=== PATIENT | male | born 1960 | race Caucasian/White ===

== ENCOUNTER 2019-10-22 21:40 | Emergency (ER) | payer BC ==
[~2019-10-22] VITALS: Ht 177.8 cm; Wt 86.2 kg
[2019-10-22 21:45] VITALS: BP 159/77
== END 2019-10-22 22:10 | disposition home or self-care (01) ==
LOC: MED 21:40
DX: L03.116 Cellulitis of left lower limb (principal)
CPT/HCPCS: 99283

== ENCOUNTER 2020-07-16 10:46 | Inpatient (IN) | payer BC, SELFPAY ==
[~2020-07-16] VITALS: Ht 175.3 cm; Wt 83.9 kg
[2020-07-16 10:55] VITALS: BP 158/64
--- NOTE | 2020-07-16 10:56 | NUR ---
Pt ambulated to ER bed 8.
--- NOTE | 2020-07-16 10:59 | NUR ---
Pt ambulated to restroom for UA collection.
--- NOTE | 2020-07-16 11:08 | NUR ---
60 Y/O MALE C/O DARK BLACK STOOLS WITH X3 DAYS, WITH ABD TIGHTNING/CRAMPING AND HEMATURIA. PT STATES HE WENT TO CLINIC AND THEY GIVE HIM 3 SHOTS, UNAWARE OF WHAT WAS GIVEN WITH NO RELIEF. PT STATES HE FEELS DIZZY AND LIGHTHEADED AND HIS EYES ARE TREMBLING. PT REPORTS NUMBNESS AND TINGLING TO LIPS. LAST BLOODY STOOL WAS LAST NIGHT. PT REPORTS N/V. DENIES PAIN AND SOB. ACTIVE BOWEL SOUNDS IN ALL FOUR QUADRANTS. PT ABD IS ROUND, SOFT AND NONTENDER. PT STATES THIS OCCURED LAST YEAR. PT IS A&O X4 WITH EVEN AND UNLABORED RESPIRATIONS. PT IS LAYING IN BED, WITH BED IN LOWEST POSITION, BRAKES LOCKED WITH X1 SIDERAIL UP. PMH: DENIES NKA
--- NOTE | 2020-07-16 11:20 | NUR ---
DR GARCIA AT PT BEDSIDE FOR FURTHER EVALUATION.
--- NOTE | 2020-07-16 11:32 | NUR ---
EMT AT PT BEDSIDE FOR EKG.
--- NOTE | 2020-07-16 11:35 | NUR ---
IV ESTABLISHED IN RIGHT WRIST 20G. BLOOD SAMPLES COLLECTED AND GIVEN TO LAB
--- NOTE | 2020-07-16 11:46 | NUR ---
SCALPING MACHINE OPERATOR AT PT BEDSIDE
[2020-07-16 11:48] LABS: BASOPHILS % (AUTO) 0.5 % (0.0-2.0); EOSINOPHILS # (AUTO) 0.1 K/uL (0-0.4); EOSINOPHILS % (AUTO) 2.8 % (0.0-4.0); HEMATOCRIT 24.5 % (36-52); HEMOGLOBIN 8.4 g/dL (12.0-18.0); LYMPHOCYTES # (AUTO) 1.4 K/uL (2.0-11.5); LYMPHOCYTES % (AUTO) 27.6 % (20.5-51.1); MEAN CORPUSCULAR HEMOGLOBIN 31 pg (27-31); MEAN CORPUSCULAR HGB CONC 34 g/dL (33-37); MEAN CORPUSCULAR VOLUME 89.5 fL (80-94); MONOCYTES # (AUTO) 0.2 K/uL (0.8-1.0); MONOCYTES % (AUTO) 4.5 % (1.7-9.3); NEUTROPHILS # (AUTO) 3.3 K/uL (1.8-7.7); NEUTROPHILS % (AUTO) 64.6 % (42.2-75.2); PLATELET COUNT (AUTO) 133 K/uL (140-450); RED BLOOD CELL COUNT(AUTO) 2.74 MIL/uL (4.20-6.10); RED CELL DISTRIBUTION WIDTH 14.3 % (11.6-13.7); WHITE BLOOD COUNT (AUTO) 5.1 K/uL (4.8-10.8)
[2020-07-16 12:01] LABS: PROTHROMBIN TIME 9.3 secs (10.8-13.4)
[2020-07-16 12:03] LABS: ALBUMIN 3.4 g/dL (3.4-5.0); ANION GAP 11.7 (8-16); CARBON DIOXIDE 27.7 mmol/L (21-32); POTASSIUM 3.4 mmol/L (3.5-5.1); TOTAL BILIRUBIN 0.3 mg/dL (0.0-1.0)
[2020-07-16 12:04] LABS: APPEARANCE,URINE CLEAR (CLEAR); BILIRUBIN,URINE NEGATIVE (NEGATIVE); BLOOD, URINE NEGATIVE (NEGATIVE); COLOR,URINE YELLOW (YELLOW); LEUKOCYTE ESTERASE ,URINE NEGATIVE (NEGATIVE); NITRITE, URINE NEGATIVE (NEGATIVE); UGLUCOSE NEGATIVE (NEGATIVE)
--- NOTE | 2020-07-16 12:19 | NUR ---
RN AT PT BEDSIDE FOR ECTOR ORNELAS, WALKED TO LAB.
--- NOTE | 2020-07-16 12:37 | NUR ---
Gave report to LEISA Lieberman for pending admission tele 104B. Pending ECTOR ORNELAS results. ETA 15 minutes-20 minutes.
--- NOTE | 2020-07-16 12:58 | NUR ---
COVID DURGA RESULTS BACK- PT IS NEGATIVE. NOTIFIED JOSE DE LA FUENTE. ETA 10 MINS
--- NOTE | 2020-07-16 13:07 | NUR ---
Patient will be admitted to care of Dr. Ascencion Killian. Admited to Telemetry. Will go to room 104B. Belongings list completed. Report to Mio DE LA FUENTE.
--- NOTE | 2020-07-16 13:30 | NUR ---
ADMITTED PT FROM ER WITH DX OF GI BLEED. PT STATED BLACK STOOL DURING BOWEL MOVEMENT. PT IS RESTING AND CALM. DENIES DISCOMFORT OR PAIN. DENIES CHEST PAIN. RFA PERIPHERAL LINE INTACT AND PATENT. NO S/S OF RESPIRATORY DISTRESS. [id number]. BRP. PT IS COOPERATIVE. WILL MONITOR CLOSELY.
[2020-07-16] MEDS ORDERED: ONDANSETRON 4 MG/2 ML VIAL IM/IVP PRN (14:25)
[2020-07-16] MEDS ORDERED: ACETAMINOPHEN 325 MG TAB PO PRN (14:25)
[2020-07-16] MEDS ORDERED: POTASSIUM CHLORIDE 10 MEQ TABER PO PRN (14:25)
[2020-07-16] MEDS ORDERED: HYDROcodone/APAP 7.5/325 MG 1 TAB PO PRN (14:25)
[2020-07-16] MEDS ORDERED: DOCUSATE SODIUM 100 MG GELCAP PO PRN (14:25)
[2020-07-16] MEDS ORDERED: NACL 0.9% 1,000 ML IV SCH (14:25)
--- NOTE | 2020-07-16 14:30 | NUR ---
SEEN AND EXAMINED BY DR. CURRY. MED POC DISCUSSED. ORDERED TO HAVE PT FOR REG DIET. DR. GRAHAM WILL BE CONSULTED.
[2020-07-16 14:41] VITALS: BP 135/51
[2020-07-16 15:36] LABS: CHOL/HDL RATIO 6.4 (1-4.5); FREE T4 (FREE THYROXINE) 1.08 ng/dL (0.76-1.46); MAGNESIUM 2.3 mg/dL (1.8-2.4); PHOSPHORUS 3.1 mg/dL (2.5-4.9); THYROID STIMULATING HORMONE 1.06 uIU/mL (0.34-3.74)
--- NOTE | 2020-07-16 16:00 | NUR ---
SEEN BY DR. GRAHAM. PLAN TO HAVE FOR EGD AND COLONOSCOPY TOMORROW. DISCUSSED WITH PT. PT VERBALIZED UNDERSTANDING
[2020-07-16] MEDS ORDERED: POTASSIUM CHLORIDE 20% 40 MEQ/15 ML UDC GT SCH (16:30)
[2020-07-16] MEDS: PANTOPRAZOLE 40 MG INJ VIAL IVP SCH ×2 (16:52→21:22)
[2020-07-16] MEDS: LACTULOSE 20 GM/30 ML UDC PO SCH ×2 (17:03→21:22)
[2020-07-16] MEDS: SENNA 8.6 MG TAB PO SCH (17:04)
--- NOTE | 2020-07-16 19:30 | NUR ---
ENDORSED PT TO PIPE COVERING MOLDER RN. POC DISCUSSED AND REVIEWED. PT ON NPO. BM X1. DENIES DISCOMFORT OR PAIN. NO CHANGE OF CONDITION.
--- NOTE | 2020-07-16 19:32 | NUR ---
RECEIVED PT IN STABLE CONDITION FROM NM NURSE. TELE PT. AWAKE,ALERT AND ORIENTED X4. WITH NO C/O ANY DISCOMFORT NOR PAIN NOTED. PT ON NPO EXCEPT MEDS. VERBALIZED UNDERSTANDING. FOR EGD AND COLONOSCOPY TOMORROW. CONSENT SIGNED BY PT PER AM NURSE. IVF INFUSING WELL ON THE RT FA G #20. CLEAR AND PATENT. FOR PREP TONIGHT. FREQ CHECK NEEDED. BED ON LOW POSITION, SIDE RAILS UP X2 CALL LIGHT WITHIN REACH. WILL CONTINUE TO MONITOR.
[2020-07-16 20:00] VITALS: BP 142/60
[2020-07-16] MEDS: SUPREP BOWEL PREP KIT 354 ML SOLN.RECON PO SCH (21:23)
--- NOTE | 2020-07-16 21:23 | NUR ---
PT STARTED TAKING THE SURE PREP 177ML WITH WATER INSTRUCTED . WILL COME BACK TO AFTER AN HOUR.
[2020-07-17] VITALS: BP 136/58
--- NOTE | 2020-07-17 00:50 | NUR ---
PT IN THE BATHROOM. STARTED TO HAVE A LOOSE BM.
--- NOTE | 2020-07-17 02:00 | NUR ---
PT SLEEPING. NO PAIN NOTED.
[2020-07-17 04:00] VITALS: BP 133/55
--- NOTE | 2020-07-17 05:00 | NUR ---
PT HAD TOTAL 6X LOOSE WATERY BM DURING THE NIGHT. OUTPUT IS ALMOST CLEAR.
[2020-07-17 06:21] LABS: BASOPHILS % (AUTO) 0.8 % (0.0-2.0); EOSINOPHILS # (AUTO) 0.1 K/uL (0-0.4); EOSINOPHILS % (AUTO) 2.7 % (0.0-4.0); HEMATOCRIT 23.4 % (36-52); HEMOGLOBIN 8.4 g/dL (12.0-18.0); LYMPHOCYTES % (AUTO) 22.8 % (20.5-51.1); MEAN CORPUSCULAR HEMOGLOBIN 32 pg (27-31); MEAN CORPUSCULAR HGB CONC 36 g/dL (33-37); MEAN CORPUSCULAR VOLUME 88.6 fL (80-94); MONOCYTES # (AUTO) 0.3 K/uL (0.8-1.0); MONOCYTES % (AUTO) 7.8 % (1.7-9.3); NEUTROPHILS # (AUTO) 2.9 K/uL (1.8-7.7); NEUTROPHILS % (AUTO) 65.9 % (42.2-75.2); PLATELET COUNT (AUTO) 138 K/uL (140-450); RED BLOOD CELL COUNT(AUTO) 2.64 MIL/uL (4.20-6.10); RED CELL DISTRIBUTION WIDTH 14.6 % (11.6-13.7); WHITE BLOOD COUNT (AUTO) 4.4 K/uL (4.8-10.8)
[2020-07-17 06:33] LABS: ANION GAP 12.4 (8-16); CARBON DIOXIDE 27.5 mmol/L (21-32); CREATININE 0.8 mg/dL (0.6-1.3); POTASSIUM 3.9 mmol/L (3.5-5.1)
--- NOTE | 2020-07-17 06:45 | NUR ---
KEPT PT NPO EXCEPT FOR MEDS. PT AWARE.
--- NOTE | 2020-07-17 07:20 | NUR ---
ENDORSED TO AM NURSE IN STABLE CONDITION.
--- NOTE | 2020-07-17 07:21 | NUR ---
RECEIVED ENDORSEMENT FROM COMMUNITY SERVICE AIDE, AWAKE, ALERT, ORINETEDX4, BREATHING SPONTANEOUSLY AT ROOM AIR, NOT IN DISTRESS NOTED. WITH ONGOING IV FLUID WITH 0.9% NS AT 60ML/HOUR INFUSING AT RT FOREARM , G20 IV CANNULA NOTED. NPO EXCEPT MEDS, FOR EGD AND COLONOSCOPY TODAY. SAFETY MEASURES IN PLACE AND CONTINUE MONITOR
[2020-07-17 08:00] VITALS: BP 124/59
[2020-07-17] MEDS: LACTULOSE 20 GM/30 ML UDC PO SCH ×2 (08:12→13:00)
[2020-07-17] MEDS: SENNA 8.6 MG TAB PO SCH ×2 (08:12→13:00)
[2020-07-17] MEDS: PANTOPRAZOLE 40 MG INJ VIAL IVP SCH (08:13)
[2020-07-17] MEDS: SUPREP BOWEL PREP KIT 354 ML SOLN.RECON PO SCH (08:16)
--- NOTE | 2020-07-17 08:24 | NUR ---
FULLY AWAKE NAD ALERT, DUE MEDICATION GIVEN
[2020-07-17] MEDS ORDERED: PANTOPRAZOLE 40 MG TABEC PO SCH (09:00)
[2020-07-17] MEDS ORDERED: PANTOPRAZOLE 40 MG INJ VIAL IVP SCH (09:00)
--- NOTE | 2020-07-17 09:02 | NUR ---
PATIENT HAS BEEN SCREENED AND CATEGORIZED LOW NUTRITION RISK. PATIENT WILL BE SEEN WITHIN 7 DAYS OF ADMISSION. 07/23/[address]
[2020-07-17 09:07] LABS: T4 (THYROXINE) 6.6 ug/dL (4.5-12.0)
--- NOTE | 2020-07-17 09:37 | NUR ---
SOCIAL WORK NOTE: Patient's Orientation Unable To Assess Information Provided By TAYLER GALDAMEZ - DAUGHTER Comments SW WAS UNABLE TO MEET PATIENT AT BEDSIDE. SW CONTACTED PATIENT'S SON AND LEFT VM. SW CONTACTED PATIENT'S HOME PHONE AND SPOKE TO PATIENT'S DAUGHTER WHO PROVIDED ADDITIONAL CONTACT INFORMATION. Cancer Registrar, Realtionship and Phone Number LUISA GALDAMEZ SON [phone] TAYLER GALDAMEZ DAUGHTER [phone] Healthcare Power of Zyglo Inspector No Does Patient Have a POLST No Identifying Problems No Social Work Triggers Is A Social Work Consult Needed No Mandate Report Filed No Explanation Of Identifying Problems PATIENT IS A 60-YEAR-OLD MALE ADMITETD FOR GI BLEED. PATIENT HAS NO REPORTED PMHX. PATIENT'S DAUGHTER REPORTED NO HX OF MENTAL HEALTH OR SUBSTANCE ABUSE. Admitted From Home Pre-Admission Level Of Functioning Status Independent/Ambulatory Prior Resources/Services Used In Last 12 Months No Prior Resources Used Prior DME No Prior DME Used Dialysis Comments N/A Living Situation Lives With Family House Patient Had Caregiver No Home Support No Caregiver Issues Financial Issues No Known Financial Issue Referral To The Financial Counselor Needed No Factors/Needs No D/C Needs Identified Pt/Rep Participated In Discharge Plan Yes Patient/Family Agress With Discharge Plan Yes Discharge Plan Comments TENTATIVE DISCHARGE PLAN IS FOR PATIENT TO RETURN HOME. DC Plan Status Initiated
--- NOTE | 2020-07-17 10:16 | NUR ---
VERBALIZED PASSED WATERY CLEAR STOOL
[2020-07-17 12:00] VITALS: BP 139/51
--- NOTE | 2020-07-17 12:16 | NUR ---
DISCHARGE PLANNING: THIS IS A 60 Y/O MALE PATIENT FROM HOME, WHO CAME IN DUE TO DARK STOOLS X3 DAYS. NO PAST MEDICAL HISTORY. INITIAL DIAGNOSIS OF GI BLEED. CURRENT LABS INCLUDE WBC 4.4, H/H 8.4/23.4, NA/K 145/3.9, BUN/CREA 8/0.8. RAPID COVID TEST NEGATIVE. ON ROOM AIR, O2 SAT 99%. GI CONSULT IN PLACE. TENTATIVE PLAN TO RETURN HOME ONCE STABLE.
--- NOTE | 2020-07-17 12:16 | NUR ---
VITAL SIGNS STABLE. NOT IN DISTRESS NOTED
[2020-07-17] MEDS ORDERED: diphenhydrAMINE 50 MG/ML VIAL ONE (13:10)
[2020-07-17] MEDS ORDERED: fentaNYL citrate 0.05 MG/ML VIAL ONE (13:10)
--- NOTE | 2020-07-17 13:10 | NUR ---
OR NURSE RAYMOND CAME AND PICKED UP THE PATIENT PER BED, FOR EGD AND COLONOSCOPY
[2020-07-17] MEDS ORDERED: MIDAZOLAM 5 MG/5 ML VIAL ONE (13:11)
[2020-07-17] MEDS ORDERED: MIDAZOLAM 2 MG/2 ML VIAL IVP ONE (14:40)
[2020-07-17] MEDS ORDERED: fentaNYL citrate 0.05 MG/ML VIAL IVP ONE (14:40)
--- NOTE | 2020-07-17 15:01 | NUR ---
BACK TO ROOM , FULLY AWAKE AND ALERT, VITAL SIGNS STABLE Addendum: 07/17/20 at 1946 by [facility] 11 LEISA RN EGD AND COLONOSCOPY FINDINGS WITH GASTRIC ULCER AND 2 COLON POLYPS PER THE OR NURSE
[2020-07-17 16:00] VITALS: BP 126/50
--- NOTE | 2020-07-17 17:10 | NUR ---
FULLY AWAKE AND ALERT, JELLO AND APPLE JUICE OFFERED AND DUE MEDICATION GIVEN
[2020-07-17] MEDS: FERROUS GLUCONATE 324 MG TAB PO SCH (17:39)
--- NOTE | 2020-07-17 19:25 | NUR ---
ENDORSED TO NADYA SHIFT IN STABLE CONDITION FOR CONTINUITY OF CARE
[2020-07-17 20:00] VITALS: BP 132/65
--- NOTE | 2020-07-17 20:00 | NUR ---
RECEIVED PATIENT AWAKE IN BED. PATIENT ON ROOM AIR. NO SOB OR S/S OF DISTRESS. PT DENIES ANY PAIN OF DISCOMFORT. BED LOWERED WITH CALL LIGHT WITHIN REACH
[2020-07-18] VITALS: BP 128/61
--- NOTE | 2020-07-18 01:00 | NUR ---
PT ASLEEP IN BED. NO S/S OF DISTRESS NOTED
[2020-07-18 04:00] VITALS: BP 126/53
[2020-07-18 06:27] LABS: BASOPHILS % (AUTO) 0.8 % (0.0-2.0); EOSINOPHILS # (AUTO) 0.2 K/uL (0-0.4); EOSINOPHILS % (AUTO) 3.4 % (0.0-4.0); HEMATOCRIT 24.3 % (36-52); HEMOGLOBIN 8.5 g/dL (12.0-18.0); LYMPHOCYTES # (AUTO) 1.1 K/uL (2.0-11.5); LYMPHOCYTES % (AUTO) 18.9 % (20.5-51.1); MEAN CORPUSCULAR HEMOGLOBIN 31 pg (27-31); MEAN CORPUSCULAR HGB CONC 35 g/dL (33-37); MEAN CORPUSCULAR VOLUME 88.6 fL (80-94); MONOCYTES # (AUTO) 0.4 K/uL (0.8-1.0); MONOCYTES % (AUTO) 6.5 % (1.7-9.3); NEUTROPHILS # (AUTO) 4.3 K/uL (1.8-7.7); NEUTROPHILS % (AUTO) 70.4 % (42.2-75.2); PLATELET COUNT (AUTO) 150 K/uL (140-450); RED BLOOD CELL COUNT(AUTO) 2.74 MIL/uL (4.20-6.10); RED CELL DISTRIBUTION WIDTH 14.7 % (11.6-13.7)
[2020-07-18] MEDS ORDERED: LANSOPRAZOLE 30 MG CAPDR PO SCH (06:30)
--- NOTE | 2020-07-18 07:41 | NUR ---
PT ENDORSED TO AM NURSE IN STABLE CONDITION
--- NOTE | 2020-07-18 07:46 | NUR ---
RECEIVED REPORT FROM NIGHTSHIFT NURSE. PT RESTING IN BED. ABLE TO MAKE NEEDS KNOWN. RESPIRATIONS EVEN AND UNLABORED WITH NO SOB OR RESPIRATORY DISTRESS. SKIN WARM AND DRY TO TOUCH. IV SITE IN RFA 2OG IS CLEAN, DRY, AND INTACT. SAFETY MEASURES IN PLACE. WILL CONTINUE TO MONITOR
[2020-07-18 08:00] VITALS: BP 123/45
[2020-07-18] MEDS: FERROUS GLUCONATE 324 MG TAB PO SCH (08:24)
--- NOTE | 2020-07-18 08:31 | NUR ---
MEDICATION ADMINISTERED PRESCRIBED PER MD ORDER. PT TOLERATED WELL. MEDICATION EDUCATION PERFORMED. PT VERBALIZED UNDERSTANDING. SAFETY MEASURES IN PLACE. WILL CONTINUE TO MONITOR
[2020-07-18] MEDS ORDERED: LACTULOSE 20 GM/30 ML UDC PO SCH (09:00)
[2020-07-18 09:54] LABS: ANION GAP 12.5 (8-16); CARBON DIOXIDE 25.2 mmol/L (21-32); CREATININE 0.9 mg/dL (0.6-1.3); POTASSIUM 3.7 mmol/L (3.5-5.1)
--- NOTE | 2020-07-18 10:04 | NUR ---
PT RESTING IN BED. ABLE TO MAKE NEEDS KNOWN. RESPIRATIONS EVEN AND UNLABORED WITH NO SOB OR RESPIRATORY DISTRESS. SKIN WARM AND DRY TO TOUCH. SAFETY MEASURES IN PLACE. WILL CONTINUE TO MONITOR
[2020-07-18] MEDS ORDERED: OMEP20TC12 PO (10:40)
[2020-07-18] MEDS ORDERED: FERR325E14 PO (10:41)
[2020-07-18] MEDS ORDERED: ATOR20TA PO (10:41)
[2020-07-18 12:12] VITALS: BP 125/58
--- NOTE | 2020-07-18 12:30 | NUR ---
PT AWARE OF DISCHARGE AND WOULD LIKE TO GO HOME AFTER LUNCH. WILL CONTINUE TO MONITOR
--- NOTE | 2020-07-18 13:10 | NUR ---
WENT OVER DISCHARGE INSTRUCTIONS WITH PATIENT. PT SIGNED APPROPRIATE DOCUMENTS. EDUCATED PT TO VISIT ED FOR ANY SIGNS OF DISTRESS. PT VERBALIZED UNDERSTANDING. PT RECEIVED PNA AND FLU VACCINE IN FEB 2020 SO HE IS UP TO DATE. PT CHANGED INTO HIS OWN CLOTHES AND GATHERED HIS BELONGINGS. RETURNED HEART MONITOR TO BACTERIOLOGY RESEARCH ASSISTANT. REMOVED INTACT IV CANNULA AND ID BAND. PT HAS SURGICAL MASK. PT STABLE TO GO HOME
[2020-07-19 08:08] LABS: FOLIC ACID 11.5 ng/mL (>3.0)
== END 2020-07-18 13:10 | disposition home or self-care (01) | DRG 378 ==
LOC: MED 10:46 → MTU 12:18
PROVIDERS: ADMIT Emergency Medicine; ATTEND Emergency Medicine
PROC: 0DBF8ZZ Excision of Right Large Intestine, Via Natural or Artificial Opening Endoscopic (ICD-10-PCS; 2020-07-17)
PROC: 0DB68ZX Excision of Stomach, Via Natural or Artificial Opening Endoscopic, Diagnostic (ICD-10-PCS; principal; 2020-07-17 12:55)
PROC: 0DBG8ZZ Excision of Left Large Intestine, Via Natural or Artificial Opening Endoscopic (ICD-10-PCS; 2020-07-17 12:55)
DX: K25.4 Chronic or unspecified gastric ulcer with hemorrhage (principal); D62 Acute posthemorrhagic anemia; Z20.822 Contact with and (suspected) exposure to COVID-19; D69.6 Thrombocytopenia, unspecified; E87.6 Hypokalemia
CPT/HCPCS: 36415; 71045; 80048; 80053; 81003; 82607; 82728; 82746; 83036; 83540; 83735; 84100; 84436; 84439; 84443; 84479; 84484; 85025; 85045; 85610; 85730; 86677; 86886; 86900; 86901; 87081; 93005; 99285; C9113; J1200; J2250; J3010; J7030

== ENCOUNTER 2021-12-28 17:08 | Emergency (ER) | payer SELFPAY ==
[~2021-12-28] VITALS: Ht 169.4 cm; Wt 79.0 kg
[~2021-12-28 17:08] MED LIST: ATOR20TA PO; FERR325E14 PO; OMEP-278 PO
[2021-12-28 17:21] VITALS: BP 142/57
--- NOTE | 2021-12-28 19:28 | NUR ---
Dr. Sena examining patient.
[2021-12-28] MEDS ORDERED: cephALEXin 500 MG CAP PO ONE (19:35)
[2021-12-28 19:49] LABS: BASOPHILS % (AUTO) 0.8 % (0.0-2.0); EOSINOPHILS # (AUTO) 0.3 K/uL (0-0.4); EOSINOPHILS % (AUTO) 3.9 % (0.0-4.0); HEMATOCRIT 40.6 % (36-52); HEMOGLOBIN 14.2 g/dL (12.0-18.0); LYMPHOCYTES # (AUTO) 1.5 K/uL (2.0-11.5); LYMPHOCYTES % (AUTO) 24.1 % (20.5-51.1); MEAN CORPUSCULAR HEMOGLOBIN 31 pg (27-31); MEAN CORPUSCULAR HGB CONC 35 g/dL (33-37); MEAN CORPUSCULAR VOLUME 88.3 fL (80-94); MONOCYTES # (AUTO) 0.6 K/uL (0.8-1.0); MONOCYTES % (AUTO) 9.7 % (1.7-9.3); NEUTROPHILS # (AUTO) 3.9 K/uL (1.8-7.7); NEUTROPHILS % (AUTO) 61.5 % (42.2-75.2); PLATELET COUNT (AUTO) 157 K/uL (140-450); RED BLOOD CELL COUNT(AUTO) 4.59 MIL/uL (4.20-6.10); RED CELL DISTRIBUTION WIDTH 13.3 % (11.6-13.7); WHITE BLOOD COUNT (AUTO) 6.4 K/uL (4.8-10.8)
--- NOTE | 2021-12-28 20:00 | NUR ---
61 Y/O MALE BIBS FROM HOME, C/O RIGHT LOWER LEG EDEMA FRO WEEKS. LEG IS NON PITTING, RED, AND NO PAIN. A/OX4, GCS-15; AMBULATORY W/O ASSISTANCE; UNLABORED BREATHING AND SPEAKING IN FULL SENTENCES. SKIN IS PINK/DRY/WARM. DENIES N/V/D, COUGH, FEVER, CP, OR SOB. DENIES HX/RX NKA
[2021-12-28 20:01] LABS: ANION GAP 11.4 (8-16); CARBON DIOXIDE 28.7 mmol/L (21-32); CREATININE 0.8 mg/dL (0.6-1.3); POTASSIUM 4.1 mmol/L (3.5-5.1)
--- NOTE | 2021-12-28 20:15 | NUR ---
PT TAKEN TO ULTRASOUND
[2021-12-28] MEDS ORDERED: cephALEXin 500 MG CAP ONE (20:57)
--- NOTE | 2021-12-28 21:51 | NUR ---
PT TAKEN TO CT
[2021-12-29] MEDS ORDERED: IBUP-2213 PO (01:49)
--- NOTE | 2021-12-29 01:51 | NUR ---
ERMD AT BEDSIDE DISCUSSING PT RESULTS
[2021-12-29] MEDS ORDERED: CEPH-588 PO (01:57)
[2021-12-29 02:12] VITALS: BP 158/94
--- NOTE | 2021-12-29 02:13 | NUR ---
Patient discharged with v/s stable. Written and verbal after care instructions given and explained. Patient alert, oriented and verbalized understanding of instructions. Ambulatory with steady gait. All questions addressed prior to discharge. ID band removed. Patient advised to follow up with PMD. Rx of KEFLEX AND IBUPROFEN given. Patient educated on indication of medication including possible reaction and side effects. Opportunity to ask questions provided and answered. VSS, A/OX4, UNLABORED BREATHING, AMBULATORY, AND CALM DEMEANOR.
== END 2021-12-29 02:13 | disposition home or self-care (01) ==
LOC: MED 17:08
DX: R60.0 Localized edema (principal)
CPT/HCPCS: 36415; 73701; 80048; 85025; 93971; 99285; Q0092; Q9967

== ENCOUNTER 2022-04-09 01:35 | Emergency (ER) | payer BC ==
[~2022-04-09] VITALS: Ht 170.2 cm; Wt 81.6 kg
[~2022-04-09 01:35] MED LIST changes: +CEPH-588 PO; +IBUP-2213 PO
[2022-04-09 01:48] VITALS: BP 162/66
--- NOTE | 2022-04-09 03:27 | NUR ---
PT TAKEN TO BED 9
--- NOTE | 2022-04-09 03:29 | NUR ---
Patient c/o sore throat for two days.
--- NOTE | 2022-04-09 04:30 | NUR ---
Patient lying in bed, A/Ox4, chest rise and fall symmetrical, no s/s of distress.
--- NOTE | 2022-04-09 05:15 | NUR ---
Patient lying in bed, A/Ox4, chest rise and fall symmetrical, no s/s of distress.
[2022-04-09] MEDS ORDERED: HYDR25CA1 PO (05:39)
[2022-04-09 06:19] VITALS: BP 122/85
== END 2022-04-09 06:18 | disposition home or self-care (01) ==
LOC: MED 01:35
DX: R06.00 Dyspnea, unspecified (principal); Z20.822 Contact with and (suspected) exposure to COVID-19; R07.0 Pain in throat; Z79.899 Other long term (current) drug therapy
CPT/HCPCS: 71045; 87426; 87804; 93005; 99285; Q0092

== ENCOUNTER 2022-05-06 00:49 | Emergency (ER) | payer BC ==
[~2022-05-06] VITALS: Ht 170.2 cm; Wt 81.6 kg
[~2022-05-06 00:49] MED LIST changes: +HYDR25CA1 PO
[2022-05-06 01:04] VITALS: BP 149/58
--- NOTE | 2022-05-06 01:45 | NUR ---
ERMD ASSESSING PATIENT IN [place]
--- NOTE | 2022-05-06 02:01 | NUR ---
PT TO BED 12.
[2022-05-06 02:27] LABS: BASOPHILS # (AUTO) 0.1 K/uL (0.00-0.22); BASOPHILS % (AUTO) 0.9 % (0.0-2.0); EOSINOPHILS # (AUTO) 0.4 K/uL (0-0.4); EOSINOPHILS % (AUTO) 5.5 % (0.0-4.0); HEMATOCRIT 39.6 % (36-52); LYMPHOCYTES % (AUTO) 28.2 % (20.5-51.1); MEAN CORPUSCULAR HEMOGLOBIN 31 pg (27-31); MEAN CORPUSCULAR HGB CONC 35 g/dL (33-37); MEAN CORPUSCULAR VOLUME 87.8 fL (80-94); MONOCYTES # (AUTO) 0.7 K/uL (0.8-1.0); MONOCYTES % (AUTO) 9.8 % (1.7-9.3); NEUTROPHILS % (AUTO) 55.6 % (42.2-75.2); PLATELET COUNT (AUTO) 149 K/uL (140-450); RED BLOOD CELL COUNT(AUTO) 4.51 MIL/uL (4.20-6.10); RED CELL DISTRIBUTION WIDTH 13.9 % (11.6-13.7); WHITE BLOOD COUNT (AUTO) 7.1 K/uL (4.8-10.8)
[2022-05-06 02:41] LABS: ALBUMIN 3.4 g/dL (3.4-5.0); ANION GAP 13.5 (8-16); CARBON DIOXIDE 26.1 mmol/L (21-32); CREATININE 0.9 mg/dL (0.6-1.3); POTASSIUM 4.6 mmol/L (3.5-5.1); TOTAL BILIRUBIN 0.4 mg/dL (0.0-1.0)
[2022-05-06] MEDS ORDERED: PRED20TA5 PO (04:03)
[2022-05-06] MEDS ORDERED: ALBU0.0912 INH (04:03)
[2022-05-06 04:28] VITALS: BP 133/62
--- NOTE | 2022-05-06 04:28 | NUR ---
FIRST CONTACT WITH PT. Patient discharged with v/s stable. Written and verbal after care instructions given and explained. Patient alert, oriented and verbalized understanding of instructions. Ambulatory with steady gait. All questions addressed prior to discharge. ID band removed. Patient advised to follow up with PMD. Rx of PROVENTIL, PREDNISONE given. Patient educated on indication of medication including possible reaction and side effects. Opportunity to ask questions provided and answered.
== END 2022-05-06 04:28 | disposition home or self-care (01) ==
LOC: MED 00:49
DX: J40 Bronchitis, not specified as acute or chronic (principal); Z79.899 Other long term (current) drug therapy
CPT/HCPCS: 36415; 71045; 80053; 83880; 84484; 85025; 93005; 99285; Q0092

== ENCOUNTER 2022-06-19 01:50 | Emergency (ER) | payer BC ==
[~2022-06-19] VITALS: Ht 165.1 cm; Wt 87.5 kg
[~2022-06-19 01:50] MED LIST changes: +ALBU0.0912 INH; +PRED20TA5 PO
[2022-06-19 01:55] VITALS: BP 183/76
--- NOTE | 2022-06-19 02:24 | NUR ---
Patient taken to bed 11.
--- NOTE | 2022-06-19 03:02 | NUR ---
Patient A/Ox4, resting in bed, chest rise and fall symmetrical, no c/o pain or s/s of distress, on monitor.
[2022-06-19] MEDS ORDERED: DICYCLOMINE HCL LIQUID 20 MG, ALUMINUM HYD/MAG/SIMETHICONE 30 ML, LIDOCAINE VISCOUS 2% ... PO ONE ×3 (04:10)
[2022-06-19] MEDS ORDERED: ALUMINUM HYD/MAG/SIMETHICONE 30 ML UDC ONE (04:47)
[2022-06-19] MEDS ORDERED: DICYCLOMINE HCL LIQUID 10 MG/5 ML UDC ONE (04:47)
--- NOTE | 2022-06-19 04:51 | NUR ---
Patient A/Ox4, resting in bed, chest rise and fall symmetrical, no c/o pain or s/s of distress, on monitor.
[2022-06-19] MEDS ORDERED: LORATADINE 10 MG TAB ONE (04:59)
[2022-06-19] MEDS ORDERED: LORATADINE 10 MG TAB PO ONE (05:00)
--- NOTE | 2022-06-19 05:05 | NUR ---
claritin 10mg pulled, wasted at bedside d/t ermd canceled administration.
--- NOTE | 2022-06-19 05:10 | NUR ---
ER physician assessing patient.
--- NOTE | 2022-06-19 06:20 | NUR ---
Patient A/Ox4, resting in bed, chest rise and fall symmetrical, no c/o pain or s/s of distress, on monitor.
[2022-06-19] MEDS ORDERED: MAG-27 PO (06:40)
[2022-06-19] MEDS ORDERED: LORA10TA19 PO (06:40)
[2022-06-19 07:22] VITALS: BP 118/67
== END 2022-06-19 07:22 | disposition home or self-care (01) ==
LOC: MED 01:50
DX: R14.0 Abdominal distension (gaseous) (principal); R09.81 Nasal congestion
CPT/HCPCS: 71045; 93005; 99285; Q0092